=== PATIENT | female | born 2000 | race Caucasian/White ===

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

== ENCOUNTER 2023-05-26 04:06 | Day surgery (SDC) | payer OTHER, SELFPAY ==
[2023-05-08 14:31] VITALS: BMI 33.0
--- NOTE | 2023-05-24 09:52 | SUR.PREOP ---
Patient called to see if she can come earlier on May 26. Message left on patient's voicemail.
--- NOTE | 2023-05-24 11:31 | SUR.PREOP ---
Patient returned call. Patient moved up to the 1330 time slot for May 26. Procedure and prep reviewed with patient.
--- NOTE | 2023-05-25 18:09 | PM.HPGS ---
History of Present Illness History of Present Illness Consent: Risks, benefits, and alternatives have been discussed and questions answered. Patient agrees to proceed with procedure. Chief complaint: melena Narrative: Lisa Silva is a 22 year old female who has seen bright red blood her stools for couple of weeks. Most the time was on toilet paper but on 1 or 2 occasions she saw blood dripping into the toilet bowl. She has not been constipated lately she has been in the past but not lately. She does not sit on the toilet for an extended period of time. Review of Systems Review of Systems: All systems reviewed & are unremarkable except as noted in HPI and below PMFSH Past Medical History Medical History Migraines Family History Family History Father Depression Alcohol abuse Social History Social History Years smoked: 2 Smoking status: Current every day smoker Tobacco type: e-cigarettes/vaping Second hand tobacco smoke exposure: No Alcohol intake: never Substance use: current Substance use type: marijuana Other substance usage details: SMOKES MARIJUANA DAILY Living arrangements: with family Occupation/Education: student Gender identity (if verbalized by the patient): Female Sexual Orientation (if Verbalized by the Patient): Straight or Heterosexual Spiritual care concerns: No Meds Home Medications and Allergies Home Medications Medication Instructions Recorded Confirmed Type levonorgestrel 21 mcg/24 hours (8 1 device intrauterine ONCE 10/06/22 05/08/23 History yrs) 52 mg intrauterine device (Mirena) rimegepant 75 mg disintegrating 75 mg PO ONCE PRN Migraine Headache 04/27/23 05/08/23 History tablet (Nurtec ODT) Allergies Allergy/AdvReac Type Severity Reaction Status Date / Time No Known Allergies Allergy Verified 05/26/23 12:22 Exam Const: General: alert Orientation/consciousness: patient oriented x3 Resp: Auscultation: clear to auscultation bilaterally Cardio: Rhythm: regular rhythm GI: GI Palp: Yes Soft to palpation and No Tenderness to palpation present (GI) Neuro: General: patient oriented x3 Assessment and Plan Assessment and plan (1) Blood in stool: Code(s): K92.1 - Melena Status: Acute Assessment and Plan: Colonoscopy with possible biopsy or polypectomy or cautery or injection of substances.
[2023-05-26 12:23] VITALS: BP 128/72; PULSE 72; RESP 20; TEMP 36.6; O2SAT 99
[2023-05-26] MEDS: LACTATED RINGERS 1,000 ML 150 ML IV CONT (12:45)
--- NOTE | 2023-05-26 12:46 | WPDANESEPPF ---
Anes - Initial Pre Proc Eval Procedure: Operation Date: 05/26/23 13:30 Proposed Procedures p Colonoscopy - Uvaldo Escobar MD Date/Time: 05/26/23 12:46 Surgeon: Uvaldo Escobar MD Pre Op Diagnosis: rebecca Patient Data Age: 22 Gender: F Height: 1.65 m Weight: 89 kg Last Vital Signs Temp 97.8 F 05/26/23 12:23 Pulse 72 05/26/23 12:23 Resp 20 05/26/23 12:23 BP 128/72 05/26/23 12:23 Pulse Ox 99 05/26/23 12:23 O2 Del Method Room Air 05/26/23 12:23 Allergies Allergy/AdvReac Type Severity Reaction Status Date / Time No Known Allergies Allergy Verified 05/26/23 12:22 Home Medications Medication Instructions Recorded Confirmed Type levonorgestrel 21 mcg/24 hours (8 1 device intrauterine ONCE 10/06/22 05/08/23 History yrs) 52 mg intrauterine device (Mirena) rimegepant 75 mg disintegrating 75 mg PO ONCE PRN Migraine Headache 04/27/23 05/08/23 History tablet (Nurtec ODT) Patient hx anesthesia problems: none Family hx anesthesia problems: none Results Review: All pre-operative results and documents have been reviewed as part of the pre-operative evaluation. [facility] Past Medical History Medical History Migraines Family History Family History Father Depression Alcohol abuse Social History Social History Years smoked: 2 Smoking status: Current every day smoker Tobacco type: e-cigarettes/vaping Second hand tobacco smoke exposure: No Alcohol intake: never Substance use: current Substance use type: marijuana Other substance usage details: SMOKES MARIJUANA DAILY Living arrangements: with family Occupation/Education: student Gender identity (if verbalized by the patient): Female Sexual Orientation (if Verbalized by the Patient): Straight or Heterosexual Spiritual care concerns: No Anes - Eval Final PreProcedure Day of Procedure 05/26/23 12:46 Patient weight: obese Heart: regular rate and rhythm Lungs: clear to auscultation Airway: Mallampati scale class II Neurological: alert and oriented Last oral intake: >/= 8 hours ASA classification: II Emergent: no Anesthetic plan: proceed Anesthesia type and monitoring: general GIVS and standard monitoring Results Review: All pre-operative results and documents have been reviewed as part of the pre-operative evaluation. Informed Consent: The patient's anesthetic plan and its attendant risks and benefits were discussed with the patient/family/POA. Questions were solicited and answers provided to the satisfaction of the patient/family/POA.
[2023-05-26 13:36] VITALS: BP 97/50; PULSE 99; RESP 20; O2SAT 98
[2023-05-26 13:46] VITALS: BP 96/53; PULSE 89; RESP 19; O2SAT 98
[2023-05-26 13:56] VITALS: BP 100/59; PULSE 76; RESP 23; O2SAT 100
== END 2023-05-26 14:04 | disposition home or self-care (01) ==
PROVIDERS: PCP Family Medicine; Visit Provider Internal Medicine Gastroenterology
PROC: 0DJD8ZZ Inspection of Lower Intestinal Tract, Via Natural or Artificial Opening Endoscopic (ICD-10-PCS; CPT 45378; principal; 2023-05-26 13:30)
DX: K92.1 Melena (principal); K64.8 Other hemorrhoids; F17.290 Nicotine dependence, other tobacco product, uncomplicated
CPT/HCPCS: 45378; J2704; J7120